=== PATIENT | male | born 1960 | race Hispanic/Latino ===

== ENCOUNTER 2023-03-19 14:21 | Emergency (ER) | payer OTHER ==
[2023-03-19] MEDS ORDERED: NA CHLORIDE 0.9% 1,000 ML with MULTIVITAMINS INJ 10 ML, FOLIC ACID 1 MG, THIAMINE HCL 1... IV SCH ×4 (15:00)
[2023-03-19] MEDS ORDERED: THIAMINE 200 MG/2 ML INJ ONE (15:07)
[2023-03-19 15:10] LABS: Protime INR 1.23
[2023-03-19 15:19] LABS: Specific Gravity 1.005 (1.005-1.030); Urine Bilirubin NEGATIVE (Negative); Urine Blood Negative (Negative); Urine Clarity Clear (Clear); Urine Color Light-Yellow (Yellow); Urine Glucose NEGATIVE (Negative); Urine Protein NEGATIVE (Negative); Urine Urobilinogen Normal (Normal)
[2023-03-19 15:27] LABS: Barbiturates NEGATIVE (NEGATIVE); Benzodiazepines NEGATIVE (NEGATIVE); Cocaine NEGATIVE (NEGATIVE); METHAMPHETAM NEGATIVE (NEGATIVE); Methadone NEGATIVE (NEGATIVE); Opiates NEGATIVE (NEGATIVE); Phencyclidine NEGATIVE (NEGATIVE); THC Cannibis NEGATIVE (NEGATIVE)
[2023-03-19 15:30] LABS: Absolute Lymphocytes (CBC) 1.9 K/uL (0.7-4.9); Hematocrit 36.9 % (39.6-49.0); Lymphocytes % 56.1 % (15.3-44.8); MCV 104.3 fL (80-100); MPV 10.4 fL (7.6-11.3); RBC Red Blood Cell Count 3.54 M/uL (4.33-5.43)
[2023-03-19 15:49] LABS: ALT/SGPT 38 U/L (16-61); AST/SGOT 100 U/L (15-37); Albumin 2.7 g/dL (3.4-5.0); Alkaline Phosphatase 152 U/L (45-117); BUN Blood Urea Nitrogen 6 mg/dL (7-18); Bicarbonate 26 mEq/L (21-32); Bilirubin Direct 0.6 mg/dL (0-0.2); Bilirubin Total 0.9 mg/dL (0.2-1.0); Glomerular Filtration Rate 95 ml/min (=/>90); Glucose Level 98 mg/dL (74-106); Potassium 4.3 mEq/L (3.5-5.1); Protein, Total 8.2 g/dL (6.4-8.2); Sodium Level 134 mEq/L (136-145)
--- NOTE | 2023-03-19 16:03 | ER ---
Nurse's Notes [facility] Name: Rizwan Stearns Age: 62 yrs Sex: Male : 1960 Arrival Date: 03/19/2023 Time: 14:21 Bed 11 Private MD: Diagnosis: Weakness;Unspecified cirrhosis of liver;Tobacco use;Tobacco abuse counseling;Alcohol abuse;Alcohol abuse with intoxication Presentation: 03/19 14:27 Chief complaint: EMS states: right leg and back pain with numbness and tingling that kc6 started this morning. BGL en route 118. 25mcg fentanyl and 4mg of zofran given en route. Coronavirus screen: Vaccine status: Patient reports being unvaccinated. At this time, the client does not indicate any symptoms associated with coronavirus-19. Ebola Screen: No symptoms or risks identified at this time. Initial Sepsis Screen: Does the patient meet any 2 criteria? No. Patient's initial sepsis screen is negative. Does the patient have a suspected source of infection? No. Patient's initial sepsis screen is negative. Risk Assessment: Do you want to hurt yourself or someone else? Patient reports no desire to harm self or others. Onset of symptoms was March 19, 2023. 14:27 Method Of Arrival: [facility]: [facility]c6 14:27 Acuity: MAY 3 kc6 Triage Assessment: 14:29 General: Appears in no apparent distress. comfortable, Behavior is calm, cooperative, kc6 appropriate for age. EENT: No signs and/or symptoms were reported regarding the EENT system. Neuro: Foreman Agitation-Sedation Scale (RASS): 0 - Alert and Calm Level of Consciousness is awake, alert, obeys commands, Oriented to person, place, time, situation, Appropriate for age. Cardiovascular: Capillary refill < 3 seconds. Respiratory: Airway is patent Trachea midline Respiratory effort is even, unlabored, Respiratory pattern is regular, symmetrical. GI: No signs and/or symptoms were reported involving the gastrointestinal system. : No signs and/or symptoms were reported regarding the genitourinary system. Derm: No signs and/or symptoms reported regarding the dermatologic system. Skin is intact, Skin is pink, warm \T\ dry. Musculoskeletal: No signs and/or symptoms reported regarding the musculoskeletal system. Circulation, motion, and sensation intact. Capillary refill < 3 seconds, Range of motion: intact in all extremities. Historical: - Allergies: 14:29 No Known Allergies; kc6 - PMHx: 14:29 cirrhosis of liver; HEP C; kc6 - PSHx: 14:29 Tonsillectomy; kc6 - Immunization history:: Client reports having NOT received the Covid vaccine. Flu vaccine is not up to date. - Social history:: Smoking status: Patient reports the use of cigarette tobacco products, denies chronic smoking, but will smoke occasionally. Screenin:27 [facility] ED Fall Risk Assessment (Adult) History of falling in the last 3 months, kc6 including since admission No falls in past 3 months (0 pts) Confusion or Disorientation No (0 pts) Intoxicated or Sedated Yes (3 pts) Impaired Gait No (0 pts) Mobility Assist Device Used No (0 pt) Altered Elimination No (0 pt) Score/Fall Risk Level 3 or more points = High Risk Oriented to surroundings, Maintained a safe environment, Educated pt \T\ family on fall prevention, incl call for assistance when getting out of bed, Assessed \T\ reinforced patient's understanding of fall precautions, Hourly rounding (assess needs \T\ fall precautionary measures) done. Abuse screen: Denies threats or abuse. Denies injuries from another. Nutritional screening: No deficits noted. Tuberculosis screening: No symptoms or risk factors identified. Assessment: 14:27 Reassessment: please see triage assessment. [facility] 15:27 Reassessment: Patient appears in no apparent distress at this time. No changes from 6 previously documented assessment. Patient and/or family updated on plan of care and expected duration. Pain level reassessed. Patient is alert, oriented x 3, equal unlabored respirations, skin warm/dry/pink. 16:06 Reassessment: discharge pending fluid completion. [facility] Vital Signs: 14:27 BP 113 / 85; Pulse 72; Resp 18 S; Temp 98.5(O); Pulse Ox 96% on R/A; Weight 58.97 kg kc6 (R); Height 5 ft. 10 in. (R); 14:27 Body Mass Index 18.65 (58.97 kg, 177.8 cm) [facility] NIH Stroke Scale Scores: 15:27 NIHSS Score: 0 [facility] ED Course: 14:24 Patient arrived in ED. [facility] 14:24 Jose Martin Ma MD is Attending Physician. mai 14:27 Domi Young, RN is Primary Nurse. kc6 14:27 Patient has correct armband on for positive identification. Bed in low position. Call kc6 light in reach. Side rails up X2. 14:29 Triage completed. kc6 14:29 Arm band placed on. kc6 14:30 Maintain EMS IV. Dressing intact. Good blood return noted. Site clean \T\ dry. Gauge \T\ alexus 6 site: 18G RAC. 16:02 Shawn Springer MD is Referral Physician. mai 16:14 No provider procedures requiring assistance completed. IV discontinued, intact, kc6 bleeding controlled, No redness/swelling at site. Pressure dressing applied. Administered Medications: 15:10 Drug: Banana Bag - (NS 0.9% IV 1000 ml, foLIC Acid IVPB 1 mg, Thiamine IV 100 mg, kc6 Multivitamin IV 1 amp) Route: IV; Rate: calculated rate; Site: right antecubital; 16:06 Follow up: Response: No adverse reaction; IV Status: Completed infusion; IV Intake: kc6 1000ml 15:10 Drug: Thiamine IV 100 mg Route: IV; Rate: per protocol; Site: right antecubital; kc6 16:06 Follow up: Response: No adverse reaction; IV Status: Completed infusion kc6 Medication: 16:15 VIS not applicable for this client. kc6 Intake: 16:06 IV: 1000ml; Total: 1000ml. kc6 Outcome: 16:03 Discharge ordered by . mai 16:15 Discharged to home ambulatory. kc6 16:15 Condition: improved 16:15 Discharge instructions given to patient, Instructed on discharge instructions, follow up and referral plans. Demonstrated understanding of instructions, follow-up care. 16:15 Patient left the ED. kc6 NIH Stroke Scale - NIH Stroke Score Date: 03/19/2023 Time: 15:27 Total Score = 0 10. Dysarthria (speech clarity - read or repeat words) - 0(Normal) 11. Extinction and Inattention (visual/tactile/auditory/spatial/personal) - 0(No abnormality) 1a. Level of Consciousness (LOC) - 0(Alert) 1b. Level of Consciousness (LOC) (Month \T\ Age) - 0(Both) 1c. LOC Commands (Open \T\ Closes Eyes/Laboratory Director) - 0(Both) 2. Best Gaze (Lateral Gaze Paresis) - 0(Normal) 3. Visual Field Loss - 0(No visual loss) 4. Facial Palsy - 0(Normal) 5a. Left Arm: Motor (10-second hold) - 0(No drift) 5b. Right Arm: Motor (10-second hold) - 0(No drift) 6a. Left Leg: Motor (5-second hold - always test supine) - 0(No drift) 6b. Right Leg: Motor (5-second hold - always test supine) - 0(No drift) 7. Limb Ataxia (finger/nose \T\ heel/bear - test with eyes open) - 0(Absent) 8. Sensory Loss (pinprick arms/legs/face) - 0(Normal) 9. Best Language: Aphasia (description/naming/reading) - 0(No aphasia) Initials: mai Signatures: Jose Martin Ma MD MD cha Campbell, Kaitlyn, RN RN kc6
--- NOTE | 2023-03-19 16:03 | EDPHYS ---
Physician Documentation [facility] Name: Rizwan Stearns Age: 62 yrs Sex: Male : 1960 Arrival Date: 03/19/2023 Time: 14:21 Bed 11 Private MD: MICHELLE Physician Jose Martin Ma HPI: 03/19 15:26 This 62 yrs old Male presents to ER via EMS with complaints of Leg Pain, Back mai Pain. 15:26 The patient presents with weakness, secondary to pain. The complaints affect the right mai leg and left leg. Context: resulted from an unknown cause, the patient can fully bear weight. Onset: The symptoms/episode began/occurred 3 month(s) ago. Modifying factors: The symptoms are alleviated by remaining still, the symptoms are aggravated by movement, weight bearing. Associated signs and symptoms: The patient has no apparent associated signs or symptoms. Severity of symptoms: At their worst the symptoms were mild, moderate, in the emergency department the symptoms are unchanged. The patient has experienced similar episodes in the past, chronically. Historical: - Allergies: 14:29 No Known Allergies; kc6 - PMHx: 14:29 cirrhosis of liver; HEP C; kc6 - PSHx: 14:29 Tonsillectomy; kc6 - Immunization history:: Client reports having NOT received the Covid vaccine. Flu vaccine is not up to date. - Social history:: Smoking status: Patient reports the use of cigarette tobacco products, denies chronic smoking, but will smoke occasionally. ROS: 15:27 Constitutional: Negative for fever, chills, and weight loss, Eyes: Negative for injury, mai pain, redness, and discharge, ENT: Negative for injury, pain, and discharge, Neck: Negative for injury, pain, and swelling, Cardiovascular: Negative for chest pain, palpitations, and edema, Respiratory: Negative for shortness of breath, cough, wheezing, and pleuritic chest pain, Abdomen/GI: Negative for abdominal pain, nausea, vomiting, diarrhea, and constipation, Back: Negative for injury and pain, : Negative for injury, bleeding, discharge, and swelling, MS/Extremity: Negative for injury and deformity, Skin: Negative for injury, rash, and discoloration, Psych: Negative for depression, anxiety, suicide ideation, homicidal ideation, and hallucinations, Allergy/Immunology: Negative for hives, rash, and allergies, Endocrine: Negative for neck swelling, polydipsia, polyuria, polyphagia, and marked weight changes, Hematologic/Lymphatic: Negative for swollen nodes, abnormal bleeding, and unusual bruising. 15:27 Neuro: Positive for weakness. Exam: 15:27 Constitutional: This is a well developed, well nourished patient who is awake, alert, mai and in no acute distress. Head/Face: Normocephalic, atraumatic. Eyes: Pupils equal round and reactive to light, extra-ocular motions intact. Lids and lashes normal. Conjunctiva and sclera are non-icteric and not injected. Cornea within normal limits. Periorbital areas with no swelling, redness, or edema. ENT: Nares patent. No nasal discharge, no septal abnormalities noted. Tympanic membranes are normal and external auditory canals are clear. Oropharynx with no redness, swelling, or masses, exudates, or evidence of obstruction, uvula midline. Mucous membranes moist. Neck: Trachea midline, no thyromegaly or masses palpated, and no cervical lymphadenopathy. Supple, full range of motion without nuchal rigidity, or vertebral point tenderness. No Meningismus. Chest/axilla: Normal chest wall appearance and motion. Nontender with no deformity. No lesions are appreciated. Cardiovascular: Regular rate and rhythm with a normal S1 and S2. No gallops, murmurs, or rubs. Normal PMI, no JVD. No pulse deficits. Respiratory: Lungs have equal breath sounds bilaterally, clear to auscultation and percussion. No rales, rhonchi or wheezes noted. No increased work of breathing, no retractions or nasal flaring. Abdomen/GI: Soft, non-tender, with normal bowel sounds. No distension or tympany. No guarding or rebound. No evidence of tenderness throughout. Back: No spinal tenderness. No costovertebral tenderness. Full range of motion. Male : Normal genitalia with no discharge or lesions. Skin: Warm, dry with normal turgor. Normal color with no rashes, no lesions, and no evidence of cellulitis. MS/ Extremity: Pulses equal, no cyanosis. Neurovascular intact. Full, normal range of motion. Neuro: Awake and alert, GCS 15, oriented to person, place, time, and situation. Cranial nerves II-XII grossly intact. Motor strength 5/5 in all extremities. Sensory grossly intact. Cerebellar exam normal. Normal gait. Psych: Awake, alert, with orientation to person, place and time. Behavior, mood, and affect are within normal limits. 15: ECG was reviewed by the Attending Physician. Vital Signs: 14: BP 113 / 85; Pulse 72; Resp 18 S; Temp 98.5(O); Pulse Ox 96% on R/A; Weight 58.97 kg kc6 (R); Height 5 ft. 10 in. (R); 14: Body Mass Index 18.65 (58.97 kg, 177.8 cm) kc6 NIH Stroke Scale Scores: 15: NIHSS Score: 0 mai MDM: 14:24 Patient medically screened. mai 15:29 Differential diagnosis: tendonitis. Data reviewed: vital signs, nurses notes, lab test mai result(s), EKG, radiologic studies. Consideration of Admission/Observation Escalation of care including admission/observation considered. I considered the following discharge prescriptions or medication management in the emergency department Medications were administered in the Emergency Department. See MAR. Independent interpretation of the following test(s) in the Emergency Department EKG: See my EKG interpretation above. Test considered but Not performed: CT: no ct lumbar. Care significantly affected by the following chronic conditions: Liver Disease, cirrhosis, hep c. Counseling: I had a detailed discussion with the patient and/or guardian regarding: the historical points, exam findings, and any diagnostic results supporting the discharge/admit diagnosis, lab results, the need for outpatient follow up, for definitive care, a family practitioner, a business operations coordinator. 03/19 14:31 Order name: Acetaminophen; Complete Time: 16:02 [facility] 03/19 14:31 Order name: Basic Metabolic Panel; Complete Time: 16: mai 03/19 14:31 Order name: CBC with Diff [facility] 03/19 14: Order name: ETOH Level; Complete Time: 16:02 [facility] 03/19 14:31 Order name: Hepatic Function; Complete Time: 16: [facility] 03/19 14:31 Order name: PT-INR; Complete Time: 15:25 [facility] 03/19 14:31 Order name: Ptt, Activated; Complete Time: 15:25 [facility] 03/19 14:31 Order name: Salicylate; Complete Time: 16:02 [facility] 03/19 14:31 Order name: Urinalysis w/ reflexes; Complete Time: 15:25 [facility] 03/19 14:31 Order name: Urine Drug Screen; Complete Time: 16:02 [facility] 03/19 14:31 Order name: EKG; Complete Time: 14:32 [facility] 03/19 14:31 Order name: EKG - Nurse/Tech; Complete Time: 14:57 [facility] 03/19 14:31 Order name: IV Saline Lock; Complete Time: 14:57 [facility] 03/19 14:31 Order name: Labs collected and sent; Complete Time: 14:57 [facility] 03/19 14:31 Order name: Suicide Screening (Early); Complete Time: 14:57 [facility] 03/19 15:09 Order name: Labs - recollect needed: recollect cbc and chem hemolyzed; Complete Time: eb 15:22 EC:27 Rate is 66 beats/min. Rhythm is regular. QRS [place] is Normal. OR interval is normal. QRS mai interval is normal. QT interval is normal. No Q waves. T waves are Normal. No ST changes noted. Clinical impression: NSR w/ Non-specific ST/T Changes and No evidence of ischemia. Interpreted by me. Reviewed by me. Administered Medications: 15:10 Drug: Banana Bag - (NS 0.9% IV 1000 ml, foLIC Acid IVPB 1 mg, Thiamine IV 100 mg, kc6 Multivitamin IV 1 amp) Route: IV; Rate: calculated rate; Site: right antecubital; 16:06 Follow up: Response: No adverse reaction; IV Status: Completed infusion; IV Intake: kc6 1000ml 15:10 Drug: Thiamine IV 100 mg Route: IV; Rate: per protocol; Site: right antecubital; kc6 16:06 Follow up: Response: No adverse reaction; IV Status: Completed infusion kc6 Disposition Summary: 03/19/23 16:03 Discharge Ordered Location: Home mai Problem: new mai Symptoms: have improved mai Condition: Stable mai Diagnosis - Weakness mai - Unspecified cirrhosis of liver mai - Tobacco use mai - Tobacco abuse counseling mai - Alcohol abuse mai - Alcohol abuse with intoxication mai Followup: mai - With: Private Physician - When: 2 - 3 days - Reason: Recheck today's complaints, Continuance of care, Re-evaluation by your physician Followup: mai - With: - When: 2 - 3 days - Reason: Recheck today's complaints, Re-evaluation by your physician Discharge Instructions: - Discharge Summary Sheet mai - Finding Treatment for Addiction mai - Alcohol Intoxication mai - Chronic Pain, Adult mai - Cirrhosis mai - Steps to Quit Smoking mai - Health Risks of Smoking mai - Weakness mai - Alcohol Intoxication, Paoj-wt-Felo mai - Steps to Quit Smoking, Svlj-jc-Sqni mai - Weakness, Lnrp-du-[id number] mai - Deconditioning mai Forms: - Medication Reconciliation Form mai - Thank You Letter mai - Antibiotic Education mai - Prescription Opioid Use mai NIH Stroke Scale - NIH Stroke Score Date: 03/19/2023 Time: 15:27 Total Score = 0 10. Dysarthria (speech clarity - read or repeat words) - 0(Normal) 11. Extinction and Inattention (visual/tactile/auditory/spatial/personal) - 0(No abnormality) 1a. Level of Consciousness (LOC) - 0(Alert) 1b. Level of Consciousness (LOC) (Month \T\ Age) - 0(Both) 1c. LOC Commands (Open \T\ Closes Eyes/Sql Report Developer) - 0(Both) 2. Best Gaze (Lateral Gaze Paresis) - 0(Normal) 3. Visual Field Loss - 0(No visual loss) 4. Facial Palsy - 0(Normal) 5a. Left Arm: Motor (10-second hold) - 0(No drift) 5b. Right Arm: Motor (10-second hold) - 0(No drift) 6a. Left Leg: Motor (5-second hold - always test supine) - 0(No drift) 6b. Right Leg: Motor (5-second hold - always test supine) - 0(No drift) 7. Limb Ataxia (finger/nose \T\ heel/bear - test with eyes open) - 0(Absent) 8. Sensory Loss (pinprick arms/legs/face) - 0(Normal) 9. Best Language: Aphasia (description/naming/reading) - 0(No aphasia) Initials: [facility] Signatures: Dispatcher [employer] Jose Martin Kessler MD MD cha Botello, Elizabeth eb Campbell, Kaitlyn RN RN kc6
[2023-03-19 16:21] VITALS: BP 113/85; TEMP 98.5; O2SAT 96
[2023-03-19 17:41] LABS: Blood Morphology Comment NOTED (NOT SEEN); Macrocytosis 1+; Platelet Estimate DECR
--- NOTE | 2023-03-20 07:10 | EKG ---
Test Date: 2023-03-19 Test Time: 14:50:33 School Age Lead Teacher: JESSE MEASUREMENT RESULTS: Intervals: Rate: 66 MT: 184 QRSD: 90 QT: 432 QTc: 452 [place]: P: 83 MT: 184 QRS: 88 T: 71 INTERPRETIVE STATEMENTS: Normal sinus rhythm Nonspecific ST abnormality Abnormal ECG No previous ECG available for comparison Electronically Signed On 03-20-23 07:09:28 CDT by John Florian
== END 2023-03-19 16:15 | disposition home or self-care (01) ==
LOC: ER 14:21
DX: R53.1 Weakness (principal); K74.60 Unspecified cirrhosis of liver; F10.129 Alcohol abuse with intoxication, unspecified; Z72.0 Tobacco use; Z71.6 Tobacco abuse counseling
CPT/HCPCS: 96365; 96368; 93005; 85025; 80048; 36415; 85610; 80076; 85730; 81003; 80307; 99284; J3411 ×2; J7030; G0480 ×3